=== PATIENT | female | born 1975 | race Caucasian/White ===

== ENCOUNTER → 2017-11-07 | Outpatient (CLI) | payer OTHER ==
[~2017-11-07] MED LIST: BUPR300T56 PO; DESO1TAB40 PO
--- NOTE | 2017-11-08 09:35 | RADIOLOGY IMAGING REPORT ---
[place]AC[place] [facility] [place]IENT NAME: RYAN NAVARRO : [id number] MR: [id number] V: [id number] EXAM DATE: ORDERING PHYSICIAN: CARMELA DUNN TECHNOLOGIST: Claudette Ayoub PROCEDURE:BILATERAL DIGITAL SCREENING MAMMOGRAM WITH CAD ASSISTED INTERPRETATION & 3D TOMOSYNTHESIS COMPARISON:None. This is the patient's baseline mammogram. INDICATIONS:screening FINDINGS: Moderately dense fibroglandular tissue is seen throughout the breasts. There is a small ovoid nodular area in the upper portion Left breast in Left MLO view in the middle to anterior 1/3. This appears to be in the lateral portion of the Left breast on the Left CC view. Spot compression view and Left breast Ultrasound recommended for further evaluation. DIAGNOSTIC CATEGORY 0--INCOMPLETE: NEED ADDITIONAL IMAGING EVALUATION. RECOMMENDATIONS: ADDITIONAL MAMMOGRAPHIC VIEWS REQUIRED: LEFT BREAST. ULTRASOUND: LEFT BREAST. IMPRESSION: BIRADS 0: Incomplete. Additional views of Left breast and Left breast Ultrasound recommended as described. Dictated by: Rianna Mchugh M.D. on 11/07/2017 at 15:13 Transcribed by: LIANET on 11/07/2017 at 15:26 Approved by: Rianna Mchugh M.D. on 11/08/2017 at 9:34 [facility]
== END ==
LOC: MAMO 00:52
PROVIDERS: ATTEND Obstetrics & Gynecology
DX: Z12.31 Encounter for screening mammogram for malignant neoplasm of breast (principal); R92.8 Other abnormal and inconclusive findings on diagnostic imaging of breast
CPT/HCPCS: 77063; 77067

== ENCOUNTER → 2017-11-21 | Outpatient (CLI) | payer OTHER ==
--- NOTE | 2017-11-21 15:44 | RADIOLOGY IMAGING REPORT ---
FACILITY: [facility] - [place] PATIENT NAME: RYAN NAVARRO : [id number] MR: [id number] V: [id number] EXAM DATE: [id number] ORDERING PHYSICIAN: CARMELA DNUN TECHNOLOGIST: Flory Davis RDMS(ABD,OBGYN,BR),RVT PROCEDURE:US LEFT BREAST COMPARISON:Prior mammogram 11/21/17. INDICATIONS:FURTHER EVAL FINDINGS: The Left breast, 2:30 position 8cm from the nipple there is a deformed shaped lymph node, measuring 6 x 5mm. At the 2 o'clock position, 1cm from the nipple, there is a simple cyst, 5mm. At the 12:30 position, 2cm from the nipple there is a simple cyst, 4mm. DIAGNOSTIC CATEGORY 2--BENIGN FINDING. RECOMMENDATIONS: ROUTINE MAMMOGRAM AND CLINICAL EVALUATION. IMPRESSION: BIRADS 2: Benign finding. Left breast demonstrates no suspicious mass. The previously seen possible mass Left breast on the prior mammogram, likely represents either a small simple cyst seen on the Ultrasound, or and intramammary lymph node. This was discussed with the patient by Dr. Cai. Dictated by: Adrien Cai M.D. on 11/21/2017 at 15:19 Transcribed by: LIANET on 11/21/2017 at 15:36 Approved by: Adrien Cai M.D. on 11/21/2017 at 15:44 [facility]
== END ==
LOC: MAMO 02:05
PROVIDERS: ATTEND Obstetrics & Gynecology
DX: N60.02 Solitary cyst of left breast (principal); R59.0 Localized enlarged lymph nodes
CPT/HCPCS: 77061; 77065

== ENCOUNTER → 2018-12-23 | Outpatient (CLI) | payer OTHER ==
--- NOTE | 2018-12-24 11:42 | RADIOLOGY IMAGING REPORT ---
FACILITY: [facility] PATIENT NAME: RYAN NAVARRO : [id number] MR: [id number] V: [id number] EXAM DATE: [id number] ORDERING PHYSICIAN: CARMELA DUNN TECHNOLOGIST: Claudette Ayoub PROCEDURE: BILATERAL DIGITAL SCREENING MAMMOGRAM WITH CAD ASSISTED INTERPRETATION & 3D TOMOSYNTHESIS REASON FOR STUDY: Screening. FAMILY HISTORY OF BREAST CANCER: None. BREAST PROCEDURES/TREATMENTS: None. COMPARISON: 11/21/17, 11/07/17. VIEWS OBTAINED: Bilateral 2D & 3D full field CC & MLO projections & bilateral 2D full field XCC projections. BREAST DENSITY: The breasts are heterogeneously dense which can obscure small masses. MAMMOGRAM FINDINGS: The parenchymal pattern has remained stable allowing for difference in mammographic technique & patient positioning. IMPRESSION: BIRADS 1: Negative. DIAGNOSTIC CATEGORY 1--NEGATIVE. RECOMMENDATIONS: ROUTINE MAMMOGRAM AND CLINICAL EVALUATION. Dictated by: Rianna Mchugh M.D. on 12/23/2018 at 16:12 Transcribed by: FIX on 12/24/2018 at 10:00 Approved by: Rianna Mchugh M.D. on 12/24/2018 at 11:37 [facility]
== END ==
LOC: MAMO 00:57
PROVIDERS: ATTEND Obstetrics & Gynecology
DX: Z12.31 Encounter for screening mammogram for malignant neoplasm of breast (principal)
CPT/HCPCS: 77063; 77067